=== PATIENT | male | born 1990 | race Caucasian/White ===

== ENCOUNTER 2019-04-11 07:39 | Emergency (ER) | payer OTHER ==
[2019-04-11 07:50] VITALS: BP 157/95
[2019-04-11] MEDS ORDERED: IBUPROFEN 800 MG TABLET PO STA (08:15)
[2019-04-11] MEDS ORDERED: AMOX/CLAV 875 MG/125 MG TABLET PO STA (08:15)
--- NOTE | 2019-04-11 08:18 | ED Physician Documentation ---
PD HPI ANIMAL BITE - Stated complaint Stated Complaint: DOG BITE TO FACE - Chief complaint Chief Complaint: Laceration - History obtained from History obtained from: Patient - History of Present Illness Location of injury(ies): Face, Right hand, LUE Details of the event: Dog, Pet animal, Well appearing, Immunization unknown, Provoked, Animal can be observed Timing - onset: How many hours ago (1) Similar symptoms before: Has not had sx before - Additional information Additional information: The patient is a 28-year-old male who was bitten by his neighbor's dog about 1 hour prior to arrival when he was trying to break up a fight between his own dog and the neighbor's dog. He was bitten in the face, the left hand and forearm, and the right hand. He is right-hand dominant. Tetanus status is up-to-date. Review of Systems Constitutional: denies: Fever Respiratory: denies: Dyspnea, Cough GI: denies: Nausea, Vomiting Skin: reports: Bite / sting Musculoskeletal: denies: Neck pain Neurologic: denies: Focal weakness, Numbness PD PAST MEDICAL HISTORY - Past Medical History Past Medical History: No - Past Surgical History Past Surgical History: No - Present Medications Home Medications: Ambulatory Orders Medication Instructions Recorded Confirmed Amox/Clav 875/125 [Augmentin] 1 each PO Q12H #10 tablet 04/11/19 - Allergies Allergies/Adverse Reactions: Allergies Allergy/AdvReac Type Severity Reaction Status Date / Time No Known Drug Allergies Allergy Verified 04/11/19 07:50 - Social History Does the pt smoke?: No Smoking Status: Never smoker Does the pt drink ETOH?: No Does the pt have substance abuse?: No - Immunizations Immunizations are current?: Yes PD ED PE NORMAL - Vitals Vital signs reviewed: Yes (Hypertensive) - General General: Alert and oriented X 3, Well developed/nourished - HEENT HEENT: PERRL, EOMI, Other (3 lacerations, about 1/2 cm each, to the left mandibular aspect of the face, consistent with dog bite. There is no bony tenderness to palpation, and buccal mucosa is intact.) - Neck Neck: No bony TTP, No adenopathy - Cardiac Cardiac: RRR - Respiratory Respiratory: No respiratory distress, Clear bilaterally - Derm Derm: No rash - Extremities Extremities: Other (2 lacerations, about 1/2 cm each, noted on the left distal forearm. There is a superficial abrasion at the dorsal aspect of the left 5th MCP joint. Superficial abrasions noted on the right hand. He has full flexion and extension of all DIP, PIP, and MCP joints against resistance. Distal neurovascular is intact.) - Neuro Neuro: Alert and oriented X 3, No motor deficit, No sensory deficit Results - Vitals Vitals: Vital Signs - 24 hr 04/11/19 07:47 Temperature 36.8 C Heart Rate 98 Respiratory 18 Rate Blood Pressure 157/95 H O2 Saturation 99 Oxygen O2 Source Room air Procedures - Laceration (location) left face Length in cm: 1.5 Wound type: Into subcut fat Neurovascular status: Sensory intact, Motor intact, Vascular intact Anesthesia: Lidocaine 1% with epi Wound Preparation: Hibiclens, Irrigated copiously NS, Wound explored, To the base. No: FB identified Skin layer closure: Nylon, Interrupted, Size #-0 - enter number (5), Sutures - enter # (3) Other: Patient tolerated well, No complications, Neurovascular intact, Dressing applied, Tetanus UTD Complexity: Simple left forearm Length in cm: 1 Wound type: Into subcut fat Neurovascular status: Sensory intact, Motor intact, Vascular intact Tendon involvement: Tendon intact Anesthesia: Lidocaine 1% with epi Wound Preparation: Hibiclens, Irrigated copiously NS, Wound explored, To the base. No: FB identified Skin layer closure: Nylon, Interrupted, Size #-0 - enter number (5), Sutures - enter # (2) Other: Patient tolerated well, No complications, Neurovascular intact, Dressing applied, Tetanus UTD Complexity: Simple PD MEDICAL DECISION MAKING - ED course Complexity details: re-evaluated patient, considered differential, d/w patient, d/w family ED course: The patient's presentation is significant for dog bite wounds to the face in the left forearm. Treatment in the emergency department included thorough irrigation of the wounds after instillation of 1% lidocaine with epinephrine. There were 3 separate 1/2 cm lacerations on the face. Each 1 was repaired with a single 5-0 nylon suture. Similarly, the wounds on the left forearm were thoroughly irrigated after instillation of 1% lidocaine with epinephrine. The two 1/2 cm lacerations were each repaired with a single 5-0 nylon simple suture. The abrasions over the left MCP joint and the right hand were cleaned, but did not warrant suture repair. Antibiotic ointment and Band-Aids were applied. Augmentin 875 mg was administered orally. I discussed with the patient and his female tooth cutter pinion the expected course of injury, timing for suture removal, as well as potentially worrisome signs or symptoms that should prompt reevaluation in the emergency department. He is being discharged with a prescription for Augmentin. Departure - Departure Disposition: 01 Home, Self Care Clinical Impression: Dog bite of extremity Dog bite of face Qualifiers: Encounter type: initial encounter Qualified Code(s): S01.85XA - Open bite of other part of head, initial encounter Condition: Stable Instructions: ED Bite Dog Follow-Up: REYNA Conndorene Jo [Provider Group] Prescriptions: Amox/Clav 875/125 [Augmentin] 1 each PO Q12H #10 tablet Comments: Keep the wounds clean, and apply antibiotic ointment daily. Take Augmentin twice daily as prescribed. You should eat probiotic while on the antibiotic medication. You can use ibuprofen, up to 800 mg 3 times daily for anti-inflammatory effect. Follow-up for suture removal in 8 to 10 days. Call to schedule an appointment. Return to the emergency department if you develop any sign of infection, or otherwise worsening symptoms. Discharge Date/Time: 04/11/19 09:14
[2019-04-11] MEDS ORDERED: LIDOCAINE 1%-EPI 1:100000 20 ML MDV SUBQ STA (08:37)
[2019-04-11] MEDS ORDERED: BACITRACIN OINT TOP ONE (09:18)
== END 2019-04-11 09:14 | disposition home or self-care (01) ==
LOC: ED 07:39
DX: S01.85XA Open bite of other part of head, initial encounter (principal); S51.852A Open bite of left forearm, initial encounter; S61.452A Open bite of left hand, initial encounter; S61.451A Open bite of right hand, initial encounter; W54.0XXA Bitten by dog, initial encounter; Y93.89 Activity, other specified
CPT/HCPCS: 12001; 12011; 99283; A9270

== ENCOUNTER 2021-11-15 14:08 | Outpatient (CLI) | payer OTHER ==
[2021-11-15 14:57] VITALS: BP 138/86
--- NOTE | 2021-11-15 14:57 | SLEEP CARE CONSULTATION ---
Information from patient questionnaire entered by Darryn Fuentes MA. I have reviewed and concur with the information entered by Darryn Fuentes MA. This document represents the service I personally performed and the decisions made by me, Carmen Zaragoza ARNP. History of Present Illness Service Date and Time: 11/15/2021 1408 Reason for Visit: New patient (ONSET 09/2011 NO PRIORS) Chief Complaint: reports: Unrefreshed sleep, Snoring, Observed pauses in breathing, Frequent awakenings at night Date of Onset: 5-7 YEARS Usual bedtime: 2000 Time it takes to fall asleep: 15 MINUTES Snores at night: Yes Observed to quit breathing while asleep: Yes Sleeps alone due to snoring: No Number of times waking at night: 1-2, noted by his ex to be constantly at night Reasons for waking at night: reports: Gasping for air, Other (unknown reason) Toss, Turn, or Twitch while sleeping: Yes Recalls having dreams: Yes Usually gets out of bed at: 0100- 0430 Feels refreshed in the morning: No Morning headache: No Sleepy or fatigued during the day: Yes (hits hard after lunch) Ever fallen asleep while driving: Yes (not in years; usually at red lights; nothing recent) Takes day naps: No Prior sleep studies: No Additional HPI information: I had the pleasure of seeing LUIS FERNANDO EDGAR today regarding the possibility of him having a sleep disorder. His current complaints are frequent night awakenings, snoring and unrefreshed sleep. He states that he will wake up at night gasping for air but he does not remember doing this. He states it seems to be worse on his back. He states his ex told him he would wake up gasping and g oing back to sleep all night. He does not wake up feeling refreshed ever and is fatigued throughout the day. 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 Patient is Single and lives in [place]. Have you smoked in the past 12 months: No Alcohol use: Yes Alcohol amount and frequency: 4 X WEEKLY Caffeine use: Yes Caffeine amount and frequency: 1-3 X DAILY Family History Family history of sleep disordered breathing: No Allergies and Home Medications Drug allergies reviewed: Yes (NKDA) Home medication list reviewed: Yes (no daily medications or supplements) Allergy and home medication list: Allergies No Known Drug Allergies Allergy (Verified 04/11/19 07:50) Review of Systems Weight loss over past 5 years: 15 Cardiovascular: reports: irregular heart rate or pulse (2011 benign finding). denies: high blood pressure Gastrointestinal: denies: heartburn Neurological: denies: headaches Psychiatric: denies: anxiety, depression Ear/Nose/Throat: reports: wisdom teeth removed. denies: tonsillectomy Immunologic: reports: sneezing, allergies to food or environment (seasonal ) Physical Exam Vital signs obtained and entered by: Sundar FUENTES CMA JIMENA Blood Pressure: 138/86 (PULSE 79, RESP 16, LEFT, ) Heart Rate: 78 O2 Saturation: 98 (PAPER) Height: 6 ft 2 in Weight: 200 lb (PT CLOTHES) Body Mass Index: 25.7 BMI Classification: Overweight Neck circumference: 15 (INCHES) Mouth and throat: narrow oropharynx Soft palate: long Hard palate: normal Uvula: normal Uvula visualization: 25% Mallampati Class III Tongue: enlarged in size with teeth alaniz on lateral edges Tonsils: small Neck: normal w/o lymphadenopathy or thyromegaly Heart: regular rate and rhythm Lungs: clear bilaterally Impression and Plan 1. Suspected Obstructive Sleep Apnea-Hypopnea Syndrome, as suggested by a history of loud and irregular snoring, observed cessation of breath while asleep, gasping or choking in sleep, frequent awakening during the night, unrefreshed sleep, cognitive impairment, and excessive daytime sleepiness. Narrow oropharynx and obesity are common predisposing factors for obstructive sleep apnea-hypopnea syndrome. I recommend proceeding to polysomnography to confirm the diagnosis and to assess severity. If the patient has significant sleep disordered breathing, a manual CPAP titration study will also be performed to find the optimal treatment pressure. I informed the patient of what the sleep studies involve and after some discussion, obtained agreement to proceed. The pathophysiology of obstructive sleep apnea-hypopnea syndrome was discussed with the patient and health risks of cardiovascular and cerebrovascular disease if not treated. Risks of drowsy driving discussed in detail and patient advised to avoid long distance driving and to tree puller at the first sign of drowsiness. Patient agreed to plan. * Schedule polysomnography +- manual CPAP titration study and return in 1-2 weeks after the study to discuss results. * Avoid long distance driving or driving when feeling sleepy. * Avoid alcohol, sedative and muscle relaxant around bedtime. * Attempt to lose weight. * Review instructions provided by trained office staff on how to prepare for the sleep study. * Return for follow-up after sleep study completed. Counseling Topics: Weight loss health impact Visit Type: In Office Time Spent with Patient (minutes): 30 Provider Statement: I spent 100% of the Face to Face Visit with the patient with greater than 50% spent counseling the patient and coordination of care.
== END 2021-11-15 14:09 | disposition home or self-care (01) ==
LOC: SC 14:08
PROVIDERS: ATTEND Nurse Practitioner Family
DX: R06.83 Snoring (principal); G47.8 Other sleep disorders; G47.10 Hypersomnia, unspecified; R53.83 Other fatigue; R06.81 Apnea, not elsewhere classified
CPT/HCPCS: 99203; 99212

== ENCOUNTER 2021-11-26 12:29 | Outpatient (CLI) | payer OTHER | END 2021-11-26 12:30 | disposition home or self-care (01) | LOC: SC 12:29 | PROVIDERS: ATTEND Nurse Practitioner Family | DX: G47.33 Obstructive sleep apnea (adult) (pediatric) (principal); R09.02 Hypoxemia | CPT/HCPCS: 95806 ==

== ENCOUNTER 2021-12-20 14:01 | Outpatient (CLI) | payer OTHER ==
[2021-12-20 14:45] VITALS: BP 136/88
--- NOTE | 2021-12-20 14:46 | SLEEP CARE CONSULTATION ---
Information from patient questionnaire entered by Darryn Butler MA. I have reviewed and concur with the information entered by Darryn Butler MA. This document represents the service I personally performed and the decisions made by , Carmen Zaragoza ARNP. History of Present Illness Service Date and Time: 12/20/2021 1401 Initial [place] Sleepiness Scale score: 15 (11/06) Current [place] Sleepiness Scale score: 17 (12/2021) Additional HPI information: LUIS FERNANDO EDGAR returns for follow up and results of the recently performed home sleep study. I explained the pathophysiology behind obstructive sleep apnea. We then spent quite a bit of time discussing different treatment options. For mild obstructive sleep apnea, surgery and oral appliance are alternatives to nasal CPAP therapy but in moderate or severe cases, nasal CPAP is the most effective and reliable treatment. I reviewed the impact of weight changes on sleep apnea and strongly recommended losing weight. After some discussion, the patient opted to go with the nasal CPAP therapy. Nasal autoCPAP set at 4-15 cmH20 will be ordered with rationale explained. A manual titration study will be ordered if unable to find optimal pressure with office adjustments. I explained how CPAP machine works and what to expect when using the machine. Using CPAP every night in order to get used to it was emphasized. Patient advised to put CPAP mask on before getting into bed so as not to fall asleep without CPAP. To assist acclimation to CPAP use, it could also be used for a short time during day while reading or watching TV. The patient was instructed to call the CPAP supplier to discuss any mechanical problem that may occur. If the mask given is uncomfortable or is difficult to keep on through the night even with adjustment, contact the CPAP supplier as many will replace with another mask style if notified before 30 days. If snoring or perceives is not getting enough air or too much air from the machine, notify this office. [facility] patient education PAP tips reviewed and given to patient. Patient counseled not drink alcohol less than 4 hours before bedtime as it can increase snoring and apnea. Patient was cautioned about risks of drowsy driving until sleepiness symptoms resolve. Sleep Study - Results Type of Sleep Study: Home sleep study (F/U HOME STUDY, 11/26/21 [facility],) Prior sleep studies: No Polysomnography/Home Sleep Study results: Physician Impression: The quality of the study is fair due to partial loss of pulse oximetry signal near the end of the test. The length of the study is adequate (> 240 minutes). Please also see the tabulated and graphic data. 1. Obstructive Sleep Apnea-Hypopnea (ICD-10 G47.33), mild, with an AHI of 8.5/hr and varun SaO2 of 88%. During the study, the patient had 28 apneas (28 obstructive, 0 central, 0 mixed) and 50 hypopneas. The longest episode lasted 148.0 seconds. The patient did not sleep supine during this study. 2. Hypoxemia (ICD-10 R09.02), mild, with the lowest oxygen saturation of 88 % and 2.9 minutes with SaO2 under 90%. Baseline oxygen saturation was normal (Average oxygen saturation was 95%). Allergies and Home Medications Known drug allergies: No Drug allergies reviewed: Yes Home medication list reviewed: Yes (no changes) Allergy and home medication list: Allergies No Known Drug Allergies Allergy (Verified 04/11/19 07:50) Review of Systems Review of systems same as previous: Yes (no changes) Physical Exam Vital signs obtained and entered by: Sundar BUTLER CMA AAWV, Blood Pressure: 136/88 (right, pulse 73, resp 16, ) Heart Rate: 74 O2 Saturation: 96 (n95) Height: 6 ft 2 in Weight: 198 lb (uniform and boots) Body Mass Index: 25.4 BMI Classification: Overweight Impression and Plan 1. Obstructive Sleep Apnea-Hypopnea Syndrome, mild, with lowest oxygen saturation of 88%. Obviously this is the cause of the patients symptoms of unrefreshed sleep, and excessive daytime sleepiness. As mentioned above, the patient will be started on nasal autoCPAP therapy with pressure set at 4-15 cmH2 O. A manual titration study will be completed if unable to find optimal treatment pressure with office adjustments. Compliance guidelines also reviewed. A copy of compliance guidelines will be given for reference at check out. * Nasal auto CPAP therapy, pressure at 4-15 cm H2O. * Attempt to lose weight. * Avoid alcohol consumption near bedtime. * Avoid supine sleep until using CPAP. * The patient is again cautioned about driving until sleepiness completely resolves. * Return one month after CPAP obtained. I will assess response to therapy and compliance at that time. Counseling Topics: Sleeping position, Weight loss health impact Visit Type: In Office Time Spent with Patient (minutes): 22 Provider Statement: I spent 100% of the Face to Face Visit with the patient with greater than 50% spent counseling the patient and coordination of care.
== END 2021-12-20 14:02 | disposition home or self-care (01) ==
LOC: SC 14:01
PROVIDERS: ATTEND Nurse Practitioner Family
DX: G47.33 Obstructive sleep apnea (adult) (pediatric) (principal)
CPT/HCPCS: 99212; 99213